=== PATIENT | female | born 1940 | race Caucasian/White ===

== ENCOUNTER → 2018-05-08 | Day surgery (SDC) | payer MEDICARE, BC ==
[~2018-05-08] VITALS: Ht 152.4 cm; Wt 88.9 kg
[~2018-05-08] MED LIST: API; ATENOLOL50 MG; CALCIUM 500+D1 EACH; D3 + K2 DOTS 11 EACH; EXFORGE 10-1601 EACH PO; LIDOCAINE HCL 2% LOCAL 20 ML VIAL ONE; MAGNESIUM OXID400 MG PO; MULTI-VITAMIN1 EACH; PANTOPRAZOLE SO40 MG PO; eliquis
[2018-05-08 11:22] VITALS: BP 141/68
--- NOTE | 2018-05-08 14:59 | Operative Report ---
DATE OF PROCEDURE: May 08, 2018 INDICATIONS: ILR explant. PROCEDURES PERFORMED: Implantable loop recorder explant. COMPLICATIONS: None. BLOOD LOSS: 5 mL. RECOMMENDATIONS: Continued anticoagulation for atrial fibrillation. Left anterior chest wall was anesthetized using subcutaneous lidocaine. Incision was made in the skin. The insertable loop recorder was identified and removed without complications. The subcutaneous tissue was approximated using 4-0 Vicryl. Skin was approximated using Dermabond. Patient discharged home same day. Job#: [id number]
== END | disposition home or self-care (01) ==
LOC: CATH LAB 10:58
PROVIDERS: ATTEND Internal Medicine Interventional Cardiology
DX: I48.0 Paroxysmal atrial fibrillation (principal); I10 Essential (primary) hypertension; Z79.02 Long term (current) use of antithrombotics/antiplatelets; Z68.38 Body mass index [BMI] 38.0-38.9, adult
CPT/HCPCS: 33284; J2001

== ENCOUNTER → 2021-01-10 | Day surgery (SDC) | payer MEDICARE, BC ==
[2021-01-05 11:08] LABS: ALANINE AMINOTRANSFERASE 14 IU/L (0-55); ALBUMIN 3.6 g/dL (3.5-5.0); ALBUMIN/GLOBULIN RATIO 1.4 (0.8-2.0); ALKALINE PHOSPHATASE 58 IU/L (40-150); ANION GAP 13.7 mmol/L (8-16); BLOOD UREA NITROGEN 18 mg/dL (7-26); BUN/CREATININE RATIO 23 (6-25); CALCIUM 9.2 mg/dL (8.4-10.2); CARBON DIOXIDE 27 mmol/L (22-29); CHLORIDE 104 mmol/L (98-107); CREATININE, SERUM 0.77 mg/dL (0.57-1.11); EST GLOMERULAR FILTRATION RATE > 60 ML/MIN (60-); GLUCOSE 93 mg/dL (74-118); POTASSIUM 4.7 mmol/L (3.5-5.1); SODIUM 140 mmol/L (136-145)
[2021-01-05 11:09] LABS: BASOPHILS % 0.2 % (0.0-1.0); EOSINOPHILS # (AUTO) 0.1 (0.0-0.4); EOSINOPHILS % 0.7 % (0.0-6.0); HEMATOCRIT 36.4 % (34.2-44.1); HEMOGLOBIN 12.1 g/dL (12.0-16.0); LYMPHOCYTES # (AUTO) 5.7 (1.0-3.2); MEAN CORPUSCULAR HEMOGLOBIN 30.6 pg (28-32); MEAN CORPUSCULAR HGB CONC 33.2 g/dL (31-35); MEAN CORPUSCULAR VOLUME 91.9 fL (81-99); MONOCYTES # (AUTO) 0.6 (0.2-0.8); MONOCYTES % 6.6 % (4.4-11.3); NEUTROPHILS # (AUTO) 3.1 (2.1-6.9); NEUTROPHILS % 32.2 % (38.7-80.0); PLATELET COUNT 210 x10e3/uL (140-360); RED BLOOD COUNT 3.96 x10e6/uL (3.6-5.1)
[2021-01-05 12:50] LABS: EOSINOPHILS % (MANUAL) 1 % (0-7); LYMPHOCYTES % (MANUAL) 58 % (19-48); MONOCYTES % (MANUAL) 5 % (3.4-9.0); NEUTROPHILS % (MANUAL) 31 % (40-74); PLATELET ESTIMATE ADEQUATE; PLATELET MORPHOLOGY COMMENT NORMAL; RBC MORPHOLOGY COMMENT NORMAL
[2021-01-10] VITALS (8 sets, daily range): BP systolic 112–154; BP diastolic 64–76
[~2021-01-10] VITALS: Ht 152.4 cm; Wt 83.9 kg
[~2021-01-10] MED LIST changes: +ALPRAZOLAM 0.5 MG TAB ONE; +DIPHENHYDRAMINE HCL 25 MG CAP ONE; +DOXAZOSIN MESYLA2 MG PO; +FENTANYL CITRATE/PF 100MCG/2 ML INJ ONE; +FLECAINIDE ACE100 MG PO; +FLONASE ALLERG9.9 ML INH; +HEPARIN SOD/SOD CHLORIDE 2,000 ML ONE; +IOPAMIDOL 370 MG/ML 200 ML INFUS..BTL INJ ONE; +MIDAZOLAM HCL 2 MG/2 ML VIAL ONE; +SODIUM CHLORIDE 0.9% 1000ML 1,000 ML ONE
== END | disposition home or self-care (01) ==
LOC: CATH LAB 11:11
PROVIDERS: ATTEND Internal Medicine Interventional Cardiology
DX: I25.118 Atherosclerotic heart disease of native coronary artery with other forms of angina pectoris (principal); I48.0 Paroxysmal atrial fibrillation; I10 Essential (primary) hypertension; Z01.812 Encounter for preprocedural laboratory examination; Z20.822 Contact with and (suspected) exposure to COVID-19; Z79.02 Long term (current) use of antithrombotics/antiplatelets; Z68.37 Body mass index [BMI] 37.0-37.9, adult
CPT/HCPCS: 36415; 76937; 80053; 83880; 85025; 93454; C1760; C1887 ×2; C1894; J2001; J2250; J3010; J7030; Q9967; U0002; 99152